=== PATIENT | male | born 1990 ===

== ENCOUNTER → 2023-08-23 | Day surgery (SDC) | payer OTHER ==
[~2023-08-23] MED LIST: AMLODIPINE-OLM1 EAC1; ATORVASTATIN CA40 MG; BUPIVACAINE HCL/PF 0.5% 30ML ML ONE; CEFAZOLIN SODIUM 1,000 MG VIAL IV ONE; CEFAZOLIN SODIUM 1,000 MG VIAL ONE; LIDOCAINE HCL 1%/Epi 20ML VIAL IJ ONE
== END | disposition home or self-care (01) ==
LOC: ADM 08-15 11:00 → CIR.AMB 06:00
PROVIDERS: ATTEND Surgery
DX: K40.30 Unilateral inguinal hernia, with obstruction, without gangrene, not specified as recurrent (principal); E78.5 Hyperlipidemia, unspecified; I10 Essential (primary) hypertension; Z20.822 Contact with and (suspected) exposure to COVID-19